=== PATIENT | female | born 1990 | race Caucasian/White ===

== ENCOUNTER 2016-06-15 23:53 | Emergency (ER) | payer OTHER ==
[~2016-06-15] VITALS: Ht 167.6 cm; Wt 113.4 kg
[~2016-06-15 23:53] MED LIST: VENTOLIN H0.09 MG/Ac INH; ZITHROMAX Z-PA250 M1 PO
[2016-06-16 00:06] VITALS: BP 119/80
--- NOTE | 2016-06-16 01:22 | ED INFLUENZA/URI COMPLAINT ---
History of Present Illness General Chief Complaint: General Adult Stated Complaint: "ANGELIA BEEN SICK FOR 2 WEEKS" COUGHING Source: patient, old records Exam Limitations: no limitations Vital Signs & Intake/Output Vital Signs & Intake/Output Vital Signs Date Time Temp Pulse Resp B/P Pulse O2 O2 Flow FiO2 Ox Delivery Rate 06/16 0111 98 Room Air 06/16 0006 98.9 92 16 119/80 99 Room Air Allergies Coded Allergies: coconut (Severe, ANAPHYLAXIS 06/16/16) Reconcile Medications Albuterol Sulfate (Ventolin Hfa) 0.09 MG/Actuation HERB 2 PUFF INH Q6P PRN WHEEZE Amoxicillin 250 MG CAPSULE 1 CAP PO TID BRONCHITIS Azithromycin (Zithromax Z-Micha) 250 MG CAP 1 TAB PO DAILY BRONCHITIS TAKE 2 PILLS ON DAY 1 AND THEN 1 PILL DAILY FOR 4 MORE DAYS Robitussin AC (Guaifenesin-Codeine Syrup) 200 MG-20 MG/10 ML LIQUID 10 ML PO Q6P PRN COUGH Triage Note: 26YO FEMALE TO TRIAGE W/CO "FEELING SICK X 2 WEEKS". STATES NON-PROD COUGH, FEVER,ACHES AND CHILLS. HAD IBUPROFEN AT NOON. Triage Nurses Notes Reviewed? yes : No Patient currently breastfeeds: No HPI: Patient presents with a two-week history of a worsening nonproductive cough, chills, myalgias. No nausea or vomiting. No chest pain or chest tightness. No fevers or chills. No dysuria. Similar symptoms in the past when she has had bronchitis. Past History Travel History Traveled to [place] past 21 day No Medical History Any Pertinent Medical History? see below for history Neurological: NONE EENT: NONE Cardiovascular: NONE Respiratory: NONE Gastrointestinal: NONE Hepatic: NONE Renal: NONE Musculoskeletal: NONE Psychiatric: anxiety Endocrine: NONE Surgical History Surgical History: non-contributory Psychosocial History What is your primary language [place] Tobacco Use: Current Daily Use Daily Tobacco Use Amount/Type: =< 4 Cigarettes daily ETOH Use: occasional use Illicit Drug Use: denies illicit drug use Family History Hx Contributory? No Review of Systems Review of Systems Constitutional: Reports: see HPI, chills. EENTM: Reports: no symptoms. Respiratory: Reports: see HPI, cough. Cardiovascular: Reports: no symptoms. GI: Reports: see HPI, nausea. Genitourinary: Reports: no symptoms. Musculoskeletal: Reports: no symptoms. Skin: Reports: no symptoms. Neurological/Psychological: Reports: see HPI, headache. Hematologic/Endocrine: Reports: no symptoms. Immunologic/Allergic: Reports: no symptoms. All Other Systems: Reviewed and Negative Physical Exam Physical Exam General Appearance: well developed/nourished, alert, awake, mild distress Head: atraumatic Eyes: Bilateral: PERRL, EOMI. Ears, Nose, Throat: normal ENT inspection, moist mucous membrane, hearing grossly normal Neck: normal inspection, supple Respiratory: normal breath sounds, chest non-tender, rhonchi (SCATTERED) Cardiovascular: regular rate/rhythm, normal peripheral pulses Gastrointestinal: normal bowel sounds, soft, non-tender Back: normal inspection Extremities: normal inspection, normal capillary refill, normal range of motion, no edema Neurologic/Psych: no motor/sensory deficits, awake, alert, oriented x 3, normal gait, normal mood/affect Lymphatic: no anterior cervical yojana Core Measures Severe Sepsis Present: No Septic Shock Present: No Progress Differential Diagnosis: influenza, pneumonia, pharyngitis, sinusitis Plan of Care: Orders Procedure Date/time Status THROAT CULTURE W/QUICK STREP 06/16 9 Active Current Medications Sig/Lashay Start time Last Medication Dose Stop Time Status Admin Amoxicillin 250 MG ONCE ONE 06/16 144 AC (Amoxil) 06/16 145 Guaifenesin/Codeine 10 ML ONCE ONE 06/16 144 AC Phosphate 06/16 145 (Robitussin AC) Initial ED EKG: none Departure Departure Disposition: HOME OR SELF CARE Condition: Stable Clinical Impression Primary Impression: Bronchitis Referrals: UNKNOWN (PCP/Family) Additional Instructions: YOU REALLY SHOULD CONSIDER STOPPING SMOKING TAKE MEDS PRESCRIBED RETURN IF SYMPTOMS WORSEN OR FOR ANY CONCERNS Departure Forms: Customer Survey General Discharge Information Prescriptions: Current Visit Scripts Amoxicillin 1 CAP PO TID #30 CAP Robitussin AC (Guaifenesin-Codeine Syrup) 10 ML PO Q6P PRN COUGH #240 ML
[2016-06-16] MEDS ORDERED: AMOXICILLIN250 M3 PO (01:33)
[2016-06-16] MEDS ORDERED: GUAIFENESIN-COD10 ML PO (01:33)
== END 2016-06-16 01:46 ==
LOC: ERH 23:53
DX: J40 Bronchitis, not specified as acute or chronic (principal); Z72.0 Tobacco use